=== PATIENT | male | born 1995 | race American Indian/Alaskan Native ===

== ENCOUNTER 2018-09-24 02:21 | Emergency (ER) | payer OTHER ==
[2018-09-24 02:48] VITALS: BP 145/92
[2018-09-24] MEDS ORDERED: ZOFRAN IV STA (03:01)
[2018-09-24 03:02] LABS: Basophils % (Auto) 0.3 % (0.0-1.8); Eosinophils # (Auto) 0.1 K/mm3 (0.0-0.4); Eosinophils % (Auto) 1.9 % (0.0-4.3); Hematocrit 46.4 % (35.5-45.6); Hemoglobin 15.7 gm/dl (11.8-15.2); Lymphocytes # (Auto) 0.5 K/mm3 (1.2-5.4); Lymphocytes % (Auto) 6.8 % (13.4-35.0); Mean Corpuscular HGB Conc 34 % (32-34); Mean Corpuscular Volume 91 fl (84-94); Monocytes # (Auto) 0.4 K/mm3 (0.0-0.8); Monocytes % (Auto) 5.3 % (0.0-7.3); Platelet Count 243 K/mm3 (140-440); Red Blood Count 5.11 M/mm3 (3.65-5.03); Red Cell Distribution Width 15.6 % (13.2-15.2)
[2018-09-24] MEDS ORDERED: NACL 0.9% 1000 ML 1,000 ML IV STA (03:02)
[2018-09-24] MEDS ORDERED: PEPCID IV STA (03:02)
--- NOTE | 2018-09-24 03:22 | Emergency Department Report ---
ED N/V/D HPI - General Chief complaint: Nausea/Vomiting/Diarrhea Stated complaint: NV Time Seen by Provider: 09/24/18 02:59 Source: patient, EMS Mode of arrival: Ambulatory Limitations: No Limitations - History of Present Illness Initial comments: 23-year-old -T[place] male with past medical history of alcohol abuse emergency department complaining of nausea, vomiting, diarrhea after having a increased whole intake. This past Saturday and Saturday. MD complaint: nausea, vomiting, diarrhea -: Sudden Description of Vomiting: watery, bilious Description of Diarrhea: water Associated Abdominal Pain: Yes Radiation: none Severity: mild Consistency: constant Improves with: none Worsens with: none Context: possible food poisoning, alcohol abuse Associated Symptoms: myalgias, nausea/vomiting. denies: chest pain, cough, diaphoresis, malaise, rash, shortness of breath, syncope, weakness - Related Data Previous Rx's Medication Instructions Recorded Last Taken Type Omeprazole 40 mg PO DAILY #30 capsule. 09/24/18 Unknown Rx Ondansetron [Zofran ODT TAB] 8 mg PO Q12HR #14 tab.rapdis 09/24/18 Unknown Rx Allergies Allergy/AdvReac Type Severity Reaction Status Date / Time No Known Allergies Allergy Verified 09/24/18 02:33 ED Review of Systems ROS: Stated complaint: NV Other details as noted in HPI Constitutional: denies: chills, fever Eyes: denies: eye pain, eye discharge, vision change ENT: denies: ear pain, throat pain Respiratory: denies: cough, shortness of breath, wheezing Cardiovascular: denies: chest pain, palpitations Endocrine: no symptoms reported Gastrointestinal: nausea, vomiting, diarrhea. denies: abdominal pain Genitourinary: denies: urgency, dysuria Musculoskeletal: denies: back pain, joint swelling, arthralgia Skin: denies: rash, lesions Neurological: denies: headache, weakness, paresthesias Psychiatric: denies: anxiety, depression Hematological/Lymphatic: denies: easy bleeding, easy bruising ED Past Medical Hx - Past Medical History Previous Medical History?: No - Surgical History Past Surgical History?: No - Social History Smoking Status: Never Smoker Substance Use Type: Alcohol - Medications Home Medications: Home Medications Medication Instructions Recorded Confirmed Last Taken Type Omeprazole 40 mg PO DAILY #30 capsule. 04/03/19 Unknown Rx Ondansetron [Zofran ODT TAB] 8 mg PO Q12HR #14 tab.rapdis 09/24/18 Unknown Rx ED Physical Exam - General Limitations: No Limitations General appearance: alert, in no apparent distress - Head Head exam: Present: atraumatic, normocephalic - Eye Eye exam: Present: normal appearance, PERRL, EOMI Pupils: Present: normal accommodation - ENT ENT exam: Present: normal exam, mucous membranes moist - Neck Neck exam: Present: normal inspection, full ROM - Respiratory Respiratory exam: Present: normal lung sounds bilaterally. Absent: respiratory distress, rales, rhonchi, accessory muscle use, decreased breath sounds - Cardiovascular Cardiovascular Exam: Present: regular rate, normal rhythm. Absent: systolic murmur, diastolic murmur, rubs, gallop - GI/Abdominal GI/Abdominal exam: Present: soft, normal bowel sounds - Rectal Rectal exam: Present: deferred - Extremities Exam Extremities exam: Present: normal inspection - Back Exam Back exam: Present: normal inspection - Neurological Exam Neurological exam: Present: alert, oriented X3 - Psychiatric Psychiatric exam: Present: normal affect, normal mood - Skin Skin exam: Present: warm, dry, intact, normal color. Absent: rash ED Course Vital Signs 09/24/18 02:33 Temperature 97.2 F L Pulse Rate 93 H Respiratory 18 Rate Blood Pressure 145/92 O2 Sat by Pulse 100 Oximetry - Reevaluation(s) Reevaluation #1: 09/24/18 04:42 Nausea and vomiting significantly improve abdominal pain improved as well with visualization of the medications. They will tolerate oral. No active diarrhea at present. ED Medical Decision Making - Lab Data Result diagrams: 09/24/18 02:47 09/24/18 02:47 - Medical Decision Making 23-year-old -Tong[place] male who frequents alcohol consumption in the form of liquor and has been drinking increased fashion on yesterday and developed some nausea and vomiting diarrhea today. Laboratory data then didn't reveal any infectious processes and his symptoms did resolve with the medications provided. I discussed findings the laboratory data and also advised him on decreasing his alcohol intake as well. Critical care attestation.: If time is entered above; I have spent that time in minutes in the direct care of this critically ill patient, excluding procedure time. ED Disposition Clinical Impression: Gastroenteritis, Alcohol abuse Disposition: DC-01 TO HOME OR SELFCARE Is pt being admited?: No Does the pt Need Aspirin: No Condition: Stable Instructions: Gastroenteritis (ED), Abuse of Alcohol (ED), Acute Nausea and Vomiting (ED) Prescriptions: Omeprazole 40 mg PO DAILY #30 capsule. Ondansetron [Zofran ODT TAB] 8 mg PO Q12HR #14 tab.nicoledis Referrals: JULIAN BUTLERDUNDEE MD ELYSSA [Primary Care Provider] - 3-5 Days
[2018-09-24 03:25] LABS: Alanine Aminotransferase 19 units/L (7-56); Albumin 4.9 g/dL (3.9-5); BUN/Creatinine Ratio 14; Blood Urea Nitrogen 11 mg/dL (9-20); Calcium 10.1 mg/dL (8.4-10.2); Hemolysis Index 16
[2018-09-24 03:49] LABS: Amorphous Crystals,Urine 3+; Bilirubin,Urine NEG (Negative); Blood,Urine SM (Negative); Color,Urine Amber (Yellow)
[2018-09-24 03:56] LABS: RBC,Urine < 1.0 /HPF (0.0-6.0)
[2018-09-24 03:57] LABS: WBC,Urine < 1.0 /HPF (0.0-6.0)
[2018-09-24] MEDS ORDERED: LEVSIN SL SL ONE (04:35)
[2018-09-24] MEDS ORDERED: LEVSIN SL ONE (04:36)
== END 2018-09-24 04:45 | disposition home or self-care (01) ==
LOC: ED 02:21
DX: K52.9 Noninfective gastroenteritis and colitis, unspecified (principal); F10.120 Alcohol abuse with intoxication, uncomplicated; M79.10 Myalgia, unspecified site
CPT/HCPCS: 36415; 80053; 81001; 83690; 85025; 96361; 96374; 96375; 99284; J2405; J7030